=== PATIENT | female | born 2000 | race Two or more races ===

== ENCOUNTER 2025-01-12 18:08 | Emergency (ER) | payer OTHER ==
[~2025-01-12] VITALS: Ht 157.5 cm; Wt 56.2 kg
[2025-01-12 20:46] LABS: BASO % 0.5 % (0.1-1.2); EOS # 0.04 (0.04-0.54); EOS % 0.7 % (0.7-7.0); LYMPH # 1.27 (1.18-3.74); LYMPH % 21.1 % (19.3-53.1); MEAN PLATELET VOLUME 10.60 fl (9.4-12.4); MONO # 0.29 (0.24-0.82); MONO % 4.8 % (4.7-12.5); NEUT # 4.39 (1.56-6.13); NEUT % 72.7 % (34.0-71.1); RED CELL DISTRIBUTION WIDTH 13.5 % (11.6-14.4)
[2025-01-12 21:03] LABS: COVID-19 AG NEGATIVE (NEGATIVE)
[2025-01-12 21:15] LABS: ALT/SGPT 24.0 U/L (12-78); AST/SGOT 17.0 U/L (15-37); BILIRUBIN TOTAL 0.35 mg/dL (0.3-1.2); BUN CREA RATIO 21.0 (7.0-25.0); CREATININE SERUM 0.57 mg/dL (0.55-1.02); GFR 128.21; GLOBULINA 3.7 G/DL (2.4-3.5); GLUCOSE FASTING 101.0 mg/dL (65-100); OSMOLALITY SERUM 285.0 MOSM/KG (275-295)
[2025-01-12 22:02] LABS: URINE APPEARANCE Clear; URINE BILIRRUBIN Negative (NEGATIVE); URINE BLOOD Negative; URINE COLOR Yellow; URINE GLUCOSE Negative (NEGATIVE); URINE KETONE Negative (NEGATIVE); URINE LEUKOCYTE Trace; URINE NITRATE Negative; URINE PROTEIN Negative (NEGATIVE); URINE UROBILINOGEN 0.2 E.U./dl
[2025-01-12 22:03] LABS: URINE BACTERIA 110.3 uL (0.0-1933); URINE EPITHELIAL CELLS 35.2 uL (0.0-38.8); URINE WBC 55.5 uL (0.0-23.2)
[2025-01-12 22:28] LABS: URINE CAST 0.14 uL (0.0-1.40); URINE MUCUS SCANT; URINE RBC 1.7 uL (0.0-20.8)
[2025-01-12 22:29] LABS: TYPE CELLS SQUAMOUS
== END 2025-01-13 02:03 | disposition home or self-care (01) ==
LOC: ER 18:08
PROVIDERS: Preventive Medicine Public Health & General Preventive Medicine
DX: F41.9 Anxiety disorder, unspecified (principal); R42 Dizziness and giddiness; Z20.822 Contact with and (suspected) exposure to COVID-19